=== PATIENT | female | born 1955 | race Caucasian/White ===

== ENCOUNTER 2017-08-24 10:58 | Emergency (ER) | payer OTHER, SELFPAY ==
[2017-08-24 10:59] VITALS: BP 135/52; PULSE 91; RESP 16; TEMP 36.4; O2SAT 99; BMI 41.6
--- NOTE | 2017-08-24 11:09 | RAD_ITS ---
STUDY: X-RAY - LEFT FEMUR REASON FOR STUDY: Female, 61 years old. Pain involving mid shaft of left femur status post fall. TECHNIQUE: Radiological exam, femur, minimum 2 views COMPARISON: None. FINDINGS: Normal visualized femur. Normal visualized soft tissue structure. RAD/Femur Min 2 Views IMPRESSION: No plain film evident acute osseous abnormality. Anatomically aligned left knee arthroplasty. Electronically Signed: Lino Foote MD at 13:03 EDT , Service support ,
--- NOTE | 2017-08-24 12:14 | ED.DCSUM_ITS ---
- ER Visit Summary Date of Service: 08/24/17 Chief Complaint: [Injury to left leg] History of Present Illness: The patient is a 61 F [presents the emergency department after sustaining a fall this morning around 6:30 AM. Patient states that she slipped and fell in the mud. Patient felt a tear in the back of her left thigh as she was going down. Patient states that at rest does not have much pain but only if she tries to stand up or move. Patient states she can bear weight as long she keeps her leg straight and does not flex at the knee. Patient denies any other injuries.] Physical Examination: [HEENT-PERRLA, EOMI. Cranial nerves II through XII grossly intact. TMs clear. Mucous membranes moist. No adenopathy. Cardiovascular-regular rate and rhythm without murmur or ectopy Lungs-clear to auscultation, chest wall stable without crepitus or subcu emphysema Abdomen-normoactive bowel sounds, soft, nontender, no rebound or rigidity, no peritoneal signs. Extremities-intact ?4, normal range of motion, normal pulses, atraumatic.] Patient has had both knees replaced and has old well-healed scars noted. Patient has tenderness to the mid left biceps Femoris muscle. Patient has pain with flexion at the knee. No knee tenderness on exam and she is ligamentously stable. Patient has some faint patchy erythema to the posterior aspect of the left thigh from where patient used a heated corn bag to the area to help with the discomfort. I do not palpate any hematomas. There is no ecchymosis or bruising noted. Test Results: [X-rays of the left femur obtained showed no fractures] Emergency Department Course and Treatment: [Patient will be given an Zeke wrap] Treatment Plan: [Patient advised to rest. Patient will be given a prescription for [place] should she need something for pain.] Disposition: [Discharged home in stable condition.] Impression: [Left hamstring injury-strain versus tear] This note was generated with [employer] dictation software. It may contain incorrect words, spelling, and punctuation that were not noted in review of the chart prior to signing ED Disposition - Plan for ED Patient: Chief Complaint: Fall Referrals: Catie Guadarrama NP-C [Primary Care Provider] -
--- NOTE | 2017-08-24 12:14 | ED.DEP ---
ED Disposition - Plan for ED Patient: Chief Complaint: Fall Instructions: ED Mechanical Fall, ED Strain Muscle Ext Prescriptions: Hydrocodone Bitart/Apap 5-325 [[place] 5/325] 1 - 2 tab PO Q4H PRN PRN 3 Days #12 tab PRN Reason: Pain Referrals: Catie Guadarrama, [employer]ER-C [Primary Care Provider] - 5-7 Days
--- NOTE | 2017-08-24 12:16 | DCINST.ED_ITS ---
ED Disposition - Plan for ED Patient: Chief Complaint: Fall Instructions: ED Mechanical Fall, ED Strain Muscle Ext Prescriptions: Hydrocodone Bitart/Apap 5-325 [[place] 5/325] 1 - 2 tab PO Q4H PRN PRN 3 Days #12 tab PRN Reason: Pain Referrals: Catie Guadarrama, [employer]IDENT[employer] PROGRAM COORDINATOR-C [Primary Care Provider] - 5-7 Days
[2017-08-24 12:44] VITALS: BP 148/75; PULSE 72; RESP 16; O2SAT 96
== END 2017-08-24 12:58 | disposition home or self-care (01) ==
LOC: ED 11:41
PROVIDERS: Emergency Provider Emergency Medicine; Family Provider Nurse Practitioner Family; PCP Nurse Practitioner Family
DX: S76.812A Strain of other specified muscles, fascia and tendons at thigh level, left thigh, initial encounter (principal); W01.0XXA Fall on same level from slipping, tripping and stumbling without subsequent striking against object, initial encounter; Y93.9 Activity, unspecified; Y92.89 Other specified places as the place of occurrence of the external cause; Y99.9 Unspecified external cause status
CPT/HCPCS: 73552; 99282

== ENCOUNTER → 2023-03-01 | Outpatient (CLI) | payer MEDICARE, SELFPAY ==
[2023-03-01 12:20] LABS: ALB/GLOB Ratio 0.7 RATIO (0.9-2.4); AST(SGOT) 15 U/L (15-37); Alanine Aminotransfer ALT/SGPT 18 U/L (13-56); Albumin, Serum 3.1 g/dL (3.2-5.0); Alkaline Phosphatase 118 U/L (45-117); Anion Gap 2 (5-15); BUN 10 mg/dL (7-18); BUN/Creat Ratio 11.3 RATIO (10-20); Calcium,Total 9.6 mg/dL (8.5-10.1); Chloride 111 mmol/L (98-107); Cholesterol 133 mg/dL (200); Creatinine, Serum 0.88 mg/dL (0.55-1.02); EST Glomerular Filtration Rate 68 mL/min (>60); Est Glom Filt Rate - Afr Amer 82 mL/min (>60); Free T3 2.8 pg/mL (2.18-3.98); Globulin 4.7 g/dL (2.2-4.2); Glucose 106 mg/dL (74-106); High Density Lipoprotein 52 mg/dL; Protein, Total 7.8 g/dL (6.4-8.2); Sodium Level 139 mmol/L (136-145); T4 Free Direct 1.13 ng/dL (0.76-1.46); Thyroid Stim Hormone (TSH) 0.51 uIU/mL (0.358-3.74); Triglycerides 162 mg/dL; Very Low Density Lipoprotein 32 mg/dL (5-40)
[2023-03-01 12:39] LABS: Vitamin B12 634 pg/mL (211-911)
[2023-03-01 12:40] LABS: Vitamin D,25 Hydroxy > 150.0 ng/mL (29.95-100.01)
[2023-03-03 14:09] LABS: Anti-Centromere B Ab <0.2 AI (0.0-0.9); Anti-Chromatin <0.2 AI (0.0-0.9); Anti-Jo <0.2 AI (0.0-0.9); Anti-Scleroderma-70 AB <0.2 AI (0.0-0.9); Anti-dsDNA Ab <1 IU/mL (0-9); RNP Ab <0.2 AI (0.0-0.9); SJOGREN'S Anti-SS-A test < 0.2 AI (0.0-0.9); SJOGREN'S Anti-SS-B test < 0.2 AI (0.0-0.9); Smith Ab <0.2 AI (0.0-0.9); Vitamin D 1,25-Dihydroxy 96.4 pg/mL (24.8-81.5)
[2023-03-04 17:07] LABS: Albumin 3.2 g/dL (2.9-4.4); Alpha-1-Globulins 0.3 g/dL (0.0-0.4); Cytoplasmic Ab (C-ANCA) <1:20 titer (Neg:<1:20); Endomysial Antibody IgA Negative (Negative); Gamma Globulin 1.3 g/dL (0.4-1.8); Gastrin, Serum 434 pg/mL (0-115); Immunoglobulin A 482 mg/dL (87-352); Immunoglobulin E 27 IU/mL (6-495); Immunoglobulin G 1343 mg/dL (586-1602); Immunoglobulin M 96 mg/dL (26-217); PROEL- TOTAL PROTEIN 7.1 g/dL (6.0-8.5); Perinuclear Ab (P-ANCA) <1:20 titer (Neg:<1:20); t-Transglutaminase IgA <2 U/mL (0-3)
== END | disposition home or self-care (01) ==
LOC: LAB 10:30
PROVIDERS: PCP Family Medicine; Referring Provider Internal Medicine Gastroenterology; Visit Provider Internal Medicine Gastroenterology
DX: E78.00 Pure hypercholesterolemia, unspecified (principal); K44.9 Diaphragmatic hernia without obstruction or gangrene
CPT/HCPCS: 36415; 80053; 80061; 82306; 82607; 82652; 82746; 82784; 82785; 82941; 83516; 84165; 84439; 84443; 84481; 86225; 86235; 86255; 86256; 86334

== ENCOUNTER → 2025-02-19 | Outpatient (CLI) | payer MEDICARE, SELFPAY ==
--- NOTE | 2025-02-19 09:55 | US_ITS ---
PROCEDURE: ABD LIMITED W/ ELASTOGRAPHY REASON FOR EXAM: FATTY LIVER COMPARISON: None. TECHNIQUE: Procedure Code: [id number] Modality: US Procedure: ABD LIMITED W/ ELASTOGRAPHY Right upper quadrant abdominal ultrasound. [facility]re[facility] ElastQ Imaging shear wave elastography for non-invasive assessment of liver tissue stiffness. Tereza EPIQ Elite. FINDINGS: LIVER: Size: Enlarged (hepatomegaly) Length: 19.1 cm Echotexture: Coarsened Contour: Normal Lesions: None identified Elastography: EQI Med: 4.8 kPa EQI Med Deep: 1.25 m/s IQR/Med: 19.3 %* GALLBLADDER: No stones sludge wall thickening or tenderness. COMMON BILE DUCT: Normal measuring 5.3 mm . PANCREAS: Normal Visualized portions of the right kidney are unremarkable. No right upper quadrant ascites. US/ABD Limited w/ Elastography IMPRESSION: NO TO MILD HEPATIC FIBROSIS Hepatomegaly. Diffuse fatty infiltration of the liver. Reference Values: SRU <1.37 m/s (5.7kPa): No to mild fibrosis 1.37 m/s - 2.2 m/s: Moderate to severe fibrosis >2.2 m/s (15kPa): Significant fibrosis / cirrhosis METAVIR Score F2 or higher: 1.34 m/s (5.7kPa) F3 or higher: 1.55 m/s (7.3kPa) F4: 1.80 m/s (10kPa) * If the IQR/Med is >30%, the variance in the measurements is a large and the a ccuracy of the measurement may be in question. Reading Location: [place] [id number]
== END | disposition home or self-care (01) ==
LOC: US 09:48
PROVIDERS: PCP Family Medicine; Referring Provider Internal Medicine Gastroenterology; Visit Provider Internal Medicine Gastroenterology
DX: K21.00 Gastro-esophageal reflux disease with esophagitis, without bleeding (principal); K76.0 Fatty (change of) liver, not elsewhere classified
CPT/HCPCS: 76705; 76981